=== PATIENT | male | born 1990 | race Caucasian/White ===

== ENCOUNTER 2024-03-29 11:17 | Outpatient (CLI) | payer BC, SELFPAY ==
--- NOTE | ~2024-03-29 | XR_ITS ---
Lumbosacral Spine: AP and lateral views Clinical History: Pain Findings: The normal lordotic curve is maintained. The vertebral bodies and posterior elements are i ntact. The intervertebral disc spaces are preserved. There is moderate facet arthropathy at the lowe r lumbar spine. The sacroiliac joints are normally outlined. Impression: Moderate facet arthropathy at the lower lumbar spine. Reviewed, dictated and finalized at location . Impression: Moderate facet arthropathy at the lower lumbar spine.
== END 2024-03-29 11:18 ==
PROVIDERS: PCP Chiropractor; Visit Provider Chiropractor
DX: M54.50 Low back pain, unspecified (principal); M12.88 Other specific arthropathies, not elsewhere classified, other specified site
CPT/HCPCS: 72100

== ENCOUNTER 2024-06-08 07:41 | Outpatient (CLI) | payer BC, SELFPAY ==
--- NOTE | ~2024-06-08 | XR_ITS ---
AP and lateral views of the left hip Clinical history: Pain Findings: No acute fracture or dislocation is seen. Osseous alignment is anatomic. Left hip joint is unremarkable. Soft tissues are unremarkable. Impression: No significant abnormality is seen. Reviewed, dictated and finalized at location . Impression: No significant abnormality is seen.
== END 2024-06-08 07:42 ==
LOC: MICIMG 07:43
PROVIDERS: PCP Chiropractor; Visit Provider Chiropractor
DX: M25.552 Pain in left hip (principal)
CPT/HCPCS: 73502

== ENCOUNTER 2024-07-16 09:04 | Outpatient (CLI) | payer BC, SELFPAY ==
--- NOTE | ~2024-07-16 | MR_ITS ---
Procedure: MR lumbar spine wo con Ordering provider: Efe Kim, [place] History: . WEAKNESS IN LT LEG . Comparison: None. Technique: MRI thoracic spine without contrast. FINDINGS: SPINAL CORD: Normal. The cord ends at the level of T12-L1. VERTEBRAL BODIES: Normal height and alignment. No compression fracture. Normal marrow signal. DISK SPACES: Degenerative disc disease at the level of L5-S1. L2-L3: Annulus tear. L3-L4: Annulus tear. L4-L5: Diffuse disc bulge with left lateral protrusion with narrowing of the left intervertebral fora men and the root compression on the left side. Annulus tear is also noted. L5-S1: Diffuse disc bulge with central protrusion and annulus tear. Bilateral narrowing of the forami na more on the left side. PARASPINOUS SOFT TISSUES: Normal. IMPRESSION: No acute osseous abnormalities. Multilevel degenerative disc disease with multilevel annulus tear. Variable degrees of intervertebral foraminal narrowing. Reviewed, dictated and finalized at location A.
== END 2024-07-16 09:05 ==
PROVIDERS: PCP Chiropractor; Visit Provider Chiropractor
DX: M79.662 Pain in left lower leg (principal); M51.36 Other intervertebral disc degeneration, lumbar region
CPT/HCPCS: 72148